=== PATIENT | male | born 1970 | race Hispanic/Latino ===

== ENCOUNTER 2020-04-16 09:59 | Emergency (ER) | payer OTHER, SELFPAY ==
[2020-04-17 11:56] LABS: SARS-CoV-2 MS2 Positive; SARS-CoV-2 N Gene Negative; SARS-CoV-2 S Gene Negative; SARS-CoV-2 orf1ab Negative
== END 2020-04-16 11:07 | disposition home or self-care (01) ==
LOC: ERS 09:59
DX: R05 Cough (principal); R63.0 Anorexia; R52 Pain, unspecified; R68.83 Chills (without fever); Z20.828 Contact with and (suspected) exposure to other viral communicable diseases; F41.9 Anxiety disorder, unspecified; F32.9 Major depressive disorder, single episode, unspecified; F43.10 Post-traumatic stress disorder, unspecified; F17.210 Nicotine dependence, cigarettes, uncomplicated
CPT/HCPCS: 87635; 99283; U0003

== ENCOUNTER 2020-12-12 12:44 | Emergency (ER) | payer OTHER, SELFPAY ==
[2020-12-12] MEDS ORDERED: Ketorolac Tromethamine 30 MG/ML VIAL ONE (13:13)
[2020-12-12] MEDS ORDERED: Ondansetron PF 4 MG/2 ML Vial ONE (13:13)
[2020-12-12 13:19] LABS: #Basophils 0.1 thou/uL (0.0-0.2); #Lymphocytes 1.3 thou/uL (1.20-3.40); #Monocytes 0.7 thou/uL (0.11-0.59); #Neutrophils 4.2 thou/uL (1.40-6.50); %Basophils 1.4 % (0.0-1.0); %Eosinophils 0.5 % (0.0-10.0); %Lymphocytes 20.9 % (21.0-51.0); %Monocytes 10.8 % (0.0-10.0); %Neutrophils 66.4 % (42.0-75.0); Hemoglobin 11.2 g/dL (14.0-18.0); Mean Corpuscular HGB CONC 32.4 g/dL (32.0-36.0); Mean Corpuscular Hemoglobin 26.1 pg (27.0-31.0); Mean Corpuscular Volume 80.8 fL (78.0-98.0); Mean Platelet Volume 7.8 fL (7.4-10.4); Platelet Count 296 thou/uL (130-400); RBC Distribution Width 18.8 % (11.5-14.5); White Blood Cell (WBC) Count 6.4 thou/uL (4.8-10.8)
[2020-12-12 13:38] LABS: ALT (SGPT) 49 U/L (8-55); AST (SGOT) 82 U/L (5-34); Albumin 4.5 g/dL (3.5-5.0); Alkaline Phosphatase 70 U/L (40-110); Anion Gap 20 mmol/L (10-20); BUN (Urea Nitrogen) 5 mg/dL (8.4-25.7); Bilirubin, Total 0.4 mg/dL (0.2-1.2); Calc. Creatinine Clearance 0 mL/min (70-130); Calcium 9.6 mg/dL (7.8-10.44); Carbon Dioxide 20 mmol/L (22-29); Chloride 96 mmol/L (98-107); Globulin 3.9 g/dL (2.4-3.5); Glucose 87 mg/dL (70-105); Protein, Total 8.4 g/dL (6.0-8.3); Sodium 132 mmol/L (136-145)
[2020-12-12 22:23] LABS: SARS-CoV-2 PCR by NAA Not Detected (NotDetected)
== END 2020-12-12 14:26 | disposition home or self-care (01) ==
LOC: ERS 12:44
DX: B34.9 Viral infection, unspecified (principal); E87.1 Hypo-osmolality and hyponatremia; I10 Essential (primary) hypertension; R11.2 Nausea with vomiting, unspecified; Z20.822 Contact with and (suspected) exposure to COVID-19; F17.210 Nicotine dependence, cigarettes, uncomplicated
CPT/HCPCS: 36415; 71045; 80053; 84484; 85025; 85652; 86140; 87635; 93005; 94760; 96374; 96375; J1885; J2405; U0003; U0005

== ENCOUNTER 2022-08-27 17:42 | Inpatient (IN) | payer OTHER, SELFPAY ==
[~2022-08-27 17:42] MED LIST: Iopamidol-370 76% 500 ML 1 ML ONE
[2022-08-27 18:24] LABS: #Basophils 0.1 thou/uL (0.0-0.2); #Eosinphils 0.2 thou/uL (0.0-0.7); #Lymphocytes 2.4 thou/uL (1.20-3.40); #Monocytes 0.5 thou/uL (0.11-0.59); #Neutrophils 8.1 thou/uL (1.40-6.50); %Basophils 0.6 % (0.0-1.0); %Eosinophils 1.5 % (0.0-10.0); %Lymphocytes 21.7 % (21.0-51.0); %Monocytes 4.4 % (0.0-10.0); %Neutrophils 71.8 % (42.0-75.0); Hemoglobin 12.5 g/dL (14.0-18.0); Mean Corpuscular HGB CONC 32.4 g/dL (32.0-36.0); Mean Corpuscular Hemoglobin 30.4 pg (27.0-31.0); Mean Corpuscular Volume 93.7 fl (78.0-98.0); Mean Platelet Volume 6.6 fL (7.4-10.4); Platelet Count 301 thou/uL (130-400); RBC Distribution Width 12.9 % (11.5-14.5); Red Blood Cell (RBC) Count 4.11 mill/uL (4.70-6.10); White Blood Cell (WBC) Count 11.3 thou/uL (4.8-10.8)
[2022-08-27 18:49] LABS: ALT (SGPT) 16 U/L (8-55); AST (SGOT) 25 U/L (5-34); Acetaminophen Less than 10.0 mcg/mL (10.0-30.0); Albumin 4.1 g/dL (3.5-5.0); Alcohol 171 mg/dL (Less than 10); Alcohol 173 mg/dL (Less than 10); Alkaline Phosphatase 71 U/L (40-110); Anion Gap 16 mmol/L (10-20); BUN (Urea Nitrogen) 8 mg/dL (8.4-25.7); Bilirubin, Total 0.3 mg/dL (0.2-1.2); Calc. Creatinine Clearance 0 mL/min (70-130); Calcium 8.8 mg/dL (7.8-10.44); Carbon Dioxide 17 mmol/L (22-29); Chloride 92 mmol/L (98-107); Estimated GFR 107; Globulin 2.8 g/dL (2.4-3.5); Glucose 107 mg/dL (70-105); Potassium 4.1 mmol/L (3.5-5.1); Protein, Total 6.9 g/dL (6.0-8.3); Salicylate Less than 8.0 mg/dL (15.0-30.0); Sodium 121 mmol/L (136-145)
[2022-08-27] MEDS ORDERED: CEFAZOLIN 1 GM VIAL ONE (19:11)
[2022-08-27 19:37] LABS: Bilirubin Negative (Negative); Blood, Urine Negative (Negative); Clarity Clear (Clear); Glucose, Urine (Dipstick) Normal (Negative); Ketone, Urine Negative (Negative); Leukocyte Negative Leu/uL (Negative); Nitrite Negative (Negative); Protein, Urine (Dipstick) Negative (Neg-Trace); Urobilinogen Normal mg/dL (Less than 2); pH, Urine 5.5 (5.0-9.0)
[2022-08-27 19:43] LABS: Amphetamine Not Detected (NotDetected); Barbiturates Screen Not Detected (NotDetected); Benzodiazepine Screen Not Detected (NotDetected); Cocaine Metabolite Screen Not Detected (NotDetected); Methadone Not Detected (NotDetected); Methamphetamine Not Detected (NotDetected); Opiate Screen Not Detected (NotDetected); Oxycodone Screen Not Detected (NotDetected); Phencyclidine (PCP) Not Detected (NotDetected); THC/Cannabinoid Screen Not Detected (NotDetected); Tricyclic Screen Not Detected (NotDetected)
[2022-08-27] MEDS ORDERED: Ondansetron PF 4 MG/2 ML Vial ONE (19:58)
[2022-08-27] MEDS ORDERED: Morphine 4 MG/ML VIAL ONE (19:58)
[2022-08-27] MEDS ORDERED: Lidocaine 2% PF 5 ML VIAL ONE (21:18)
[2022-08-27] MEDS ORDERED: FENTANYL 50 MCG/ML VIAL 50 MCG/ML VIAL ONE (21:54)
[2022-08-28 00:28] VITALS: BMI 25.6
[2022-08-28] MEDS ORDERED: Acetaminophen 650 MG Suppository PR PRN (01:07)
[2022-08-28 01:09] LABS: Anion Gap 16 mmol/L (10-20); BUN (Urea Nitrogen) 6 mg/dL (8.4-25.7); Calc. Creatinine Clearance 135 mL/min (70-130); Calcium 9.2 mg/dL (7.8-10.44); Carbon Dioxide 20 mmol/L (22-29); Chloride 95 mmol/L (98-107); Estimated GFR 107; Glucose 96 mg/dL (70-105); Potassium 4.6 mmol/L (3.5-5.1); Sodium 126 mmol/L (136-145)
[2022-08-28] MEDS ORDERED: Ondansetron ODT 4 MG TAB SL PRN (01:15)
[2022-08-28] MEDS ORDERED: Ondansetron PF 4 MG/2 ML Vial IVP PRN (01:15)
[2022-08-28 01:25] LABS: SARS-CoV-2 NAA Rapid Test Not Detected (NotDetected)
[2022-08-28] MEDS: Acetaminophen 325 MG TAB PO PRN ×2 (01:27→10:38)
[2022-08-28] MEDS ORDERED: Dextrose 5% in Water 1,000 ML IV SCH (01:30)
[2022-08-28] MEDS: Morphine 4 MG/ML VIAL SLOW IVP PRN ×5 (02:28→20:05)
[2022-08-28 05:35] LABS: #Eosinphils 0.1 thou/uL (0.0-0.7); #Monocytes 0.8 thou/uL (0.11-0.59); #Neutrophils 7.1 thou/uL (1.40-6.50); %Basophils 0.2 % (0.0-1.0); %Eosinophils 1.1 % (0.0-10.0); %Lymphocytes 20.2 % (21.0-51.0); %Monocytes 7.9 % (0.0-10.0); %Neutrophils 70.6 % (42.0-75.0); Hemoglobin 13.3 g/dL (14.0-18.0); Mean Corpuscular HGB CONC 32.3 g/dL (32.0-36.0); Mean Corpuscular Hemoglobin 30.4 pg (27.0-31.0); Mean Corpuscular Volume 93.9 fl (78.0-98.0); Platelet Count 288 thou/uL (130-400); RBC Distribution Width 12.8 % (11.5-14.5); Red Blood Cell (RBC) Count 4.39 mill/uL (4.70-6.10); White Blood Cell (WBC) Count 10.1 thou/uL (4.8-10.8)
[2022-08-28 06:47] LABS: Anion Gap 12 mmol/L (10-20); BUN (Urea Nitrogen) 6 mg/dL (8.4-25.7); Calc. Creatinine Clearance 130 mL/min (70-130); Calcium 9.2 mg/dL (7.8-10.44); Carbon Dioxide 24 mmol/L (22-29); Chloride 95 mmol/L (98-107); Estimated GFR 106; Glucose 106 mg/dL (70-105); Potassium 4.6 mmol/L (3.5-5.1); Sodium 126 mmol/L (136-145)
[2022-08-28] MEDS ORDERED: CEFAZOLIN 2 GM in Sodium Chloride 0.9% 100 ML IVPB SCH (07:45)
[2022-08-28 10:43] LABS: Anion Gap 14 mmol/L (10-20); BUN (Urea Nitrogen) 6 mg/dL (8.4-25.7); Calc. Creatinine Clearance 131 mL/min (70-130); Calcium 9.2 mg/dL (7.8-10.44); Carbon Dioxide 22 mmol/L (22-29); Chloride 95 mmol/L (98-107); Estimated GFR 106; Glucose 114 mg/dL (70-105); Potassium 5.2 mmol/L (3.5-5.1); Sodium 126 mmol/L (136-145)
[2022-08-28] MEDS ORDERED: Morphine 2 MG/ML VIAL SLOW IVP PRN (13:19)
[2022-08-28] MEDS: traMADol HCl 50 MG TAB PO PRN ×2 (15:42→22:12)
[2022-08-28] MEDS ORDERED: MIRTAZAPINE 45 MG PO SCH (21:00)
[2022-08-28] MEDS ORDERED: Prazosin HCl 1 MG CAP PO SCH (22:00)
[2022-08-28] MEDS ORDERED: Mirtazapine 30 MG TAB PO SCH (22:15)
[2022-08-29] MEDS: Morphine 4 MG/ML VIAL SLOW IVP PRN ×4 (00:10→15:39)
[2022-08-29 06:23] LABS: Anion Gap 13 mmol/L (10-20); BUN (Urea Nitrogen) 10 mg/dL (8.4-25.7); Calc. Creatinine Clearance 130 mL/min (70-130); Calcium 9.2 mg/dL (7.8-10.44); Carbon Dioxide 25 mmol/L (22-29); Chloride 97 mmol/L (98-107); Estimated GFR 106; Glucose 95 mg/dL (70-105); Potassium 4.5 mmol/L (3.5-5.1); Sodium 130 mmol/L (136-145)
[2022-08-29] MEDS: traMADol HCl 50 MG TAB PO PRN ×2 (06:47→11:23)
[2022-08-29] MEDS ORDERED: fentaNYL Citrate/PF 100 MCG/2 ML SYRINGE ONE (07:23)
[2022-08-29] MEDS ORDERED: PROPOFOL 200 MG/20 ML VIAL ONE (07:40)
[2022-08-29] MEDS ORDERED: Ondansetron PF 4 MG/2 ML Vial ONE (07:40)
[2022-08-29] MEDS ORDERED: Dexamethasone 20 MG/5 ML VIAL ONE (07:40)
[2022-08-29] MEDS ORDERED: CEFAZOLIN 2 GM VIAL ONE (07:53)
[2022-08-29] MEDS ORDERED: Bupivacaine PF 0.5% 30 ML VIAL ONE (08:36)
[2022-08-29] MEDS ORDERED: Promethazine HCl 25 MG/ML VIAL IVPB PRN (09:51)
[2022-08-29] MEDS ORDERED: Ondansetron HCl/PF 4 MG/2 ML Vial IVP PRN (09:51)
[2022-08-29] MEDS ORDERED: Promethazine HCl 25 MG/ML VIAL IM PRN (09:51)
[2022-08-29] MEDS ORDERED: Ketorolac Tromethamine 30 MG/ML VIAL IVP PRN (09:51)
[2022-08-29] MEDS ORDERED: Ketorolac Tromethamine 30 MG/ML VIAL ONE (09:52)
[2022-08-29] MEDS ORDERED: FENTANYL 50 MCG/ML VIAL 50 MCG/ML VIAL ONE ×2 (10:04→10:15)
[2022-08-29] MEDS ORDERED: Lithium Carbonate 150 MG CAP PO SCH ×2 (11:30→21:00)
[2022-08-29] MEDS: Folic Acid 1 MG TAB PO SCH (13:39)
[2022-08-29] MEDS: Prazosin HCl 1 MG CAP PO SCH ×2 (13:41→20:03)
[2022-08-29] MEDS: Bupropion 100 MG SR TAB PO SCH ×2 (13:41→20:04)
[2022-08-29] MEDS: CEFAZOLIN 2 GM in Sodium Chloride 0.9% 100 ML IVPB SCH (15:38)
[2022-08-29] MEDS ORDERED: Acetaminophen/Codeine 30-300mg Tablet PO PRN (16:49)
[2022-08-29] MEDS ORDERED: Ibuprofen 600 MG TAB PO PRN (16:50)
[2022-08-29] MEDS: Acetaminophen/Codeine 30-300mg Tablet PO PRN (19:59)
[2022-08-29] MEDS ORDERED: Mirtazapine 30 MG TAB PO SCH (21:00)
[2022-08-29] MEDS ORDERED: Lurasidone 20 MG TABLET PO SCH (21:00)
[2022-08-30] MEDS: CEFAZOLIN 2 GM in Sodium Chloride 0.9% 100 ML IVPB SCH ×2 (01:07→08:32)
[2022-08-30] MEDS: Acetaminophen/Codeine 30-300mg Tablet PO PRN ×3 (01:12→13:13)
[2022-08-30 06:31] LABS: Anion Gap 11 mmol/L (10-20); BUN (Urea Nitrogen) 14 mg/dL (8.4-25.7); Calc. Creatinine Clearance 130 mL/min (70-130); Calcium 9.1 mg/dL (7.8-10.44); Carbon Dioxide 24 mmol/L (22-29); Chloride 100 mmol/L (98-107); Estimated GFR 106; Glucose 96 mg/dL (70-105); Potassium 4.3 mmol/L (3.5-5.1); Sodium 131 mmol/L (136-145)
[2022-08-30] MEDS: Bupropion 100 MG SR TAB PO SCH (08:35)
[2022-08-30] MEDS: Folic Acid 1 MG TAB PO SCH (08:35)
[2022-08-30] MEDS: Morphine 4 MG/ML VIAL SLOW IVP PRN (08:55)
[2022-08-30] MEDS ORDERED: Lithium Carbonate 150 MG CAP PO SCH (09:00)
[2022-08-30 12:42] VITALS: BP 124/77; TEMP 98.4
[2022-08-30] MEDS: Prazosin HCl 1 MG CAP PO SCH (13:13)
[2022-08-30] MEDS: Valbenazine Tosylate [Ingrezza] 40 MG Capsule PO SCH (16:24)
[2022-08-31] MEDS ORDERED: FLU VACC QS2022-23(6MOS UP)/PF 60 MCG/0.5 ML SYRINGE IM ONE (09:00)
== END 2022-08-30 14:40 | disposition home or self-care (01) | DRG 504 ==
LOC: ERS 17:42 → SJJU 23:07 → OBSVTOIN 08-28 13:18
PROVIDERS: ADMIT Internal Medicine; ATTEND Internal Medicine
PROC: 0QSP04Z Reposition Left Metatarsal with Internal Fixation Device, Open Approach (ICD-10-PCS; principal; 2022-08-29)
PROC: 0J9K0ZZ Drainage of Left Hand Subcutaneous Tissue and Fascia, Open Approach (ICD-10-PCS; 2022-08-29)
DX: S62.331B Displaced fracture of neck of second metacarpal bone, left hand, initial encounter for open fracture (principal); E87.1 Hypo-osmolality and hyponatremia; E78.5 Hyperlipidemia, unspecified; Z20.822 Contact with and (suspected) exposure to COVID-19; F10.129 Alcohol abuse with intoxication, unspecified; S61.412A Laceration without foreign body of left hand, initial encounter; F20.9 Schizophrenia, unspecified; F41.9 Anxiety disorder, unspecified; F43.10 Post-traumatic stress disorder, unspecified; Z88.8 Allergy status to other drugs, medicaments and biological substances; V89.2XXA Person injured in unspecified motor-vehicle accident, traffic, initial encounter; Z98.84 Bariatric surgery status
CPT/HCPCS: 36415; 70450; 71260; 72125; 74177; 80048; 80053; 80306; 80307; 81003; 84443; 85025; 93005; 96376; 97139; C1713; G0378; J0690; J1100; J1885; J2001; J2270; J2405; J2704; J3010; J3490; J7070; Q9967; S0020; U0002

== ENCOUNTER 2022-12-13 12:10 | Emergency (ER) | payer SELFPAY ==
[2022-12-13 13:11] LABS: Bilirubin Negative (Negative); Blood, Urine Negative (Negative); Clarity Clear (Clear); Glucose, Urine (Dipstick) Normal (Negative); Ketone, Urine Negative (Negative); Leukocyte Negative Leu/uL (Negative); Nitrite Negative (Negative); Protein, Urine (Dipstick) Negative (Neg-Trace); Specific Gravity, Urine 1.003 (1.002-1.036); Urobilinogen Normal mg/dL (Less than 2)
[2022-12-13 14:19] LABS: #Basophils 0.1 thou/uL (0.0-0.2); #Lymphocytes 1.9 thou/uL (1.20-3.40); #Monocytes 0.4 thou/uL (0.11-0.59); #Neutrophils 2.4 thou/uL (1.40-6.50); %Basophils 2.1 % (0.0-1.0); %Lymphocytes 39.8 % (21.0-51.0); %Monocytes 8.2 % (0.0-10.0); %Neutrophils 48.9 % (42.0-75.0); Hemoglobin 12.5 g/dL (14.0-18.0); Mean Corpuscular HGB CONC 32.4 g/dL (32.0-36.0); Mean Corpuscular Volume 89.6 fl (78.0-98.0); Mean Platelet Volume 6.4 fL (7.4-10.4); Platelet Count 293 10x3/uL (130-400); RBC Distribution Width 15.4 % (11.5-14.5); Red Blood Cell (RBC) Count 4.29 mill/uL (4.70-6.10); White Blood Cell (WBC) Count 4.8 10x3/uL (4.8-10.8)
[2022-12-13] MEDS ORDERED: chlordiazePOXIDE HCl 25 MG CAP ONE (14:20)
[2022-12-13 14:40] LABS: ALT (SGPT) 152 U/L (8-55); AST (SGOT) 333 U/L (5-34); Acetaminophen Less than 10.0 mcg/mL (10.0-30.0); Albumin 4.3 g/dL (3.5-5.0); Alcohol 233 mg/dL (Less than 10); Alkaline Phosphatase 94 U/L (40-110); Anion Gap 18 mmol/L (10-20); BUN (Urea Nitrogen) 4 mg/dL (8.4-25.7); Bilirubin, Total 0.5 mg/dL (0.2-1.2); Calc. Creatinine Clearance 0 mL/min (70-130); Calcium 9.2 mg/dL (7.8-10.44); Carbon Dioxide 20 mmol/L (22-29); Chloride 94 mmol/L (98-107); Estimated GFR 110; Glucose 75 mg/dL (70-105); Potassium 4.1 mmol/L (3.5-5.1); Protein, Total 7.3 g/dL (6.0-8.3); Salicylate Less than 8.0 mg/dL (15.0-30.0); Sodium 128 mmol/L (136-145)
[2022-12-13 15:21] LABS: Amphetamine Not Detected (NotDetected); Barbiturates Screen Not Detected (NotDetected); Benzodiazepine Screen Not Detected (NotDetected); Cocaine Metabolite Screen Not Detected (NotDetected); Methadone Not Detected (NotDetected); Methamphetamine Not Detected (NotDetected); Opiate Screen Not Detected (NotDetected); Oxycodone Screen Not Detected (NotDetected); Phencyclidine (PCP) Not Detected (NotDetected); THC/Cannabinoid Screen Not Detected (NotDetected); Tricyclic Screen Not Detected (NotDetected)
[2022-12-13] MEDS ORDERED: Nicotine 21 MG PATCH TOP SCH (15:45)
[2022-12-13] MEDS ORDERED: hydrOXYzine 25 MG TAB ONE (20:08)
[2022-12-13] MEDS ORDERED: Folic Acid 1 MG TAB ONE (20:08)
[2022-12-13] MEDS ORDERED: hydrOXYzine Pamoate 25 mg Capsule ONE ×2 (20:12)
[2022-12-13] MEDS ORDERED: Prazosin HCl 1 MG CAP PO SCH (20:15)
[2022-12-13] MEDS ORDERED: Sertraline 100 MG TAB PO SCH (20:15)
[2022-12-13] MEDS ORDERED: Lurasidone 20 MG TABLET PO SCH (20:30)
[2022-12-13] MEDS ORDERED: Lithium Carbonate 150 MG CAP PO SCH (20:30)
[2022-12-13] MEDS ORDERED: buPROPion HCl 100 MG TAB PO SCH (20:30)
[2022-12-13] MEDS ORDERED: Lorazepam 1 MG TAB ONE (23:46)
[2022-12-14] MEDS ORDERED: Lorazepam 1 MG TAB ONE (06:04)
[2022-12-14] MEDS ORDERED: Nicotine 21 MG PATCH TOP SCH (09:00)
[2022-12-14] MEDS ORDERED: hydrOXYzine Pamoate 25 mg Capsule ONE (09:44)
[2022-12-14] MEDS ORDERED: Folic Acid 1 MG TAB ONE (09:45)
[2022-12-14] MEDS ORDERED: buPROPion HCl 100 MG TAB PO SCH (10:00)
[2022-12-14] MEDS ORDERED: Lithium Carbonate 150 MG CAP PO SCH (10:00)
[2022-12-14] MEDS ORDERED: chlordiazePOXIDE HCl 25 MG CAP ONE (14:56)
== END 2022-12-14 20:37 | disposition home or self-care (01) ==
LOC: ERS 12:10
DX: R45.851 Suicidal ideations (principal); F10.129 Alcohol abuse with intoxication, unspecified; F17.210 Nicotine dependence, cigarettes, uncomplicated; Y90.7 Blood alcohol level of 200-239 mg/100 ml
CPT/HCPCS: 36415; 80053; 80306; 80307; 81003; 85025; 93005; Q0177

== ENCOUNTER 2023-01-21 10:18 | Inpatient (IN) | payer SELFPAY ==
[2023-01-21 11:21] LABS: #Lymphocytes 1.6 thou/uL (1.20-3.40); #Monocytes 0.3 thou/uL (0.11-0.59); %Monocytes 7.6 % (0.0-10.0); %Neutrophils 50.4 % (42.0-75.0); Hemoglobin 12.9 g/dL (14.0-18.0); Mean Corpuscular HGB CONC 33.5 g/dL (32.0-36.0); Mean Corpuscular Hemoglobin 29.3 pg (27.0-31.0); Mean Corpuscular Volume 87.4 fl (78.0-98.0); Mean Platelet Volume 7.9 fL (7.4-10.4); Platelet Count 160 10x3/uL (130-400); RBC Distribution Width 17.7 % (11.5-14.5); White Blood Cell (WBC) Count 4.1 10x3/uL (4.8-10.8)
[2023-01-21 11:42] LABS: ALT (SGPT) 230 U/L (8-55); AST (SGOT) 527 U/L (5-34); Albumin 4.1 g/dL (3.5-5.0); Alkaline Phosphatase 174 U/L (40-110); Anion Gap 19 mmol/L (10-20); BUN (Urea Nitrogen) 5 mg/dL (8.4-25.7); Bilirubin, Total 0.6 mg/dL (0.2-1.2); Calc. Creatinine Clearance 0 mL/min (70-130); Calcium 9.1 mg/dL (7.8-10.44); Carbon Dioxide 21 mmol/L (22-29); Chloride 99 mmol/L (98-107); Estimated GFR 106; Globulin 2.9 g/dL (2.4-3.5); Glucose 78 mg/dL (70-105); Potassium 4.1 mmol/L (3.5-5.1); Sodium 135 mmol/L (136-145)
[2023-01-21] MEDS ORDERED: Iopamidol-370 76% 500 ML MDV (1 ML CHARGE) ONE (11:52)
[2023-01-21] MEDS ORDERED: Ondansetron PF 4 MG/2 ML Vial ONE (16:01)
[2023-01-21] MEDS ORDERED: PHENobarbital Sodium 65 MG/ML VIAL SLOW IVP PRN ×2 (16:10→18:42)
[2023-01-21 16:11] LABS: Bilirubin Negative (Negative); Blood, Urine Negative (Negative); Clarity Clear (Clear); Glucose, Urine (Dipstick) Normal (Negative); Ketone, Urine 10 mg/dL (Negative); Leukocyte Negative Leu/uL (Negative); Nitrite Negative (Negative); Protein, Urine (Dipstick) Negative (Neg-Trace); Specific Gravity, Urine 1.011 (1.002-1.036); pH, Urine 7.5 (5.0-9.0)
[2023-01-21] MEDS ORDERED: SODIUM CHLORIDE 0.9% IVPB SCH ×2 (16:15→17:45)
[2023-01-21] MEDS ORDERED: PHENOBARBITAL SODIUM IVPB SCH ×2 (16:15→17:45)
[2023-01-21] MEDS ORDERED: Thiamine HCl 100 MG, Folic Acid 1 MG in Dextrose 5 %-0.45 % NaCl 1,000 ML IVPB SCH (16:45)
[2023-01-21] MEDS ORDERED: Nicotine 21 MG PATCH TOP SCH (16:45)
[2023-01-21] MEDS ORDERED: Multivit, Therapeutic 1 TAB PO SCH (16:45)
[2023-01-21] MEDS ORDERED: Ondansetron ODT 4 MG TAB PO PRN (18:37)
[2023-01-21] MEDS ORDERED: Ondansetron PF 4 MG/2 ML Vial IVP PRN (18:37)
[2023-01-21] MEDS ORDERED: Pantoprazole 40 MG VIAL IVP SCH ×2 (18:40→18:45)
[2023-01-21] MEDS ORDERED: Lorazepam 2 MG/ML VIAL SLOW IVP PRN (18:42)
[2023-01-21] MEDS ORDERED: Morphine 2 MG/ML VIAL ONE (18:59)
[2023-01-21] MEDS ORDERED: Pantoprazole 40 MG VIAL ONE (18:59)
[2023-01-21 19:32] LABS: Troponin I Less than 0.010 ng/mL (< 0.028)
[2023-01-21] MEDS: Lactated Ringer's 1,000 ML IV SCH (20:28)
[2023-01-21 20:47] LABS: Acetaminophen Less than 10.0 mcg/mL (10.0-30.0); Alcohol Less than 10 mg/dL (Less than 10); Salicylate Less than 8.0 mg/dL (15.0-30.0)
[2023-01-21 21:25] VITALS: BMI 24.7
[2023-01-21 22:27] LABS: HBCM Index 0.07 S/CO (0-0.79); HBSAg Index 0.28 S/CO (0-0.99); HIV (1/2) Antibody/Antigen Non-Reactive (NonReactive); HIV 1/2 INDEX 0.17 S/CO (<1.00); Hep A IgM AB Non-Reactive (NonReactive); Hep A IgM S/CO 0.13 S/CO (0-0.79); Hep B Surf Ag Non-Reactive S/CO (NonReactive); Hep C IgG Ab Non-Reactive (NonReactive); Hepatitis B Core IgM Abs Non-Reactive (NonReactive)
[2023-01-21 22:32] LABS: Hep B Surf AB Reactive (NonReactive)
[2023-01-21] MEDS: Morphine 2 MG/ML VIAL SLOW IVP PRN (23:27)
[2023-01-22 00:15] LABS: Amphetamine Not Detected (NotDetected); Barbiturates Screen Detected (NotDetected); Benzodiazepine Screen Not Detected (NotDetected); Cocaine Metabolite Screen Not Detected (NotDetected); Methadone Not Detected (NotDetected); Methamphetamine Not Detected (NotDetected); Opiate Screen Detected (NotDetected); Oxycodone Screen Not Detected (NotDetected); Phencyclidine (PCP) Not Detected (NotDetected); THC/Cannabinoid Screen Not Detected (NotDetected); Tricyclic Screen Not Detected (NotDetected)
[2023-01-22] MEDS: Lactated Ringer's 1,000 ML IV SCH ×3 (00:40→12:42)
[2023-01-22] MEDS: Morphine 2 MG/ML VIAL SLOW IVP PRN ×4 (05:35→17:02)
[2023-01-22] MEDS: Famotidine/PF 20 mg/2ml Vial SLOW IVP SCH ×2 (08:51→20:46)
[2023-01-22] MEDS: Pantoprazole 40 MG VIAL IVP SCH ×2 (08:52→20:46)
[2023-01-22] MEDS: Folic Acid 1 MG TAB PO SCH (08:53)
[2023-01-22] MEDS: Thiamine 100 MG TAB PO SCH (08:53)
[2023-01-22 09:21] LABS: ALT (SGPT) 169 U/L (8-55); AST (SGOT) 279 U/L (5-34); Albumin 3.7 g/dL (3.5-5.0); Alkaline Phosphatase 156 U/L (40-110); Anion Gap 14 mmol/L (10-20); BUN (Urea Nitrogen) 5 mg/dL (8.4-25.7); Bilirubin, Total 0.8 mg/dL (0.2-1.2); Calc. Creatinine Clearance 142 mL/min (70-130); Calcium 8.7 mg/dL (7.8-10.44); Carbon Dioxide 26 mmol/L (22-29); Chloride 99 mmol/L (98-107); Estimated GFR 110; Globulin 2.8 g/dL (2.4-3.5); Glucose 75 mg/dL (70-105); Potassium 4.5 mmol/L (3.5-5.1); Protein, Total 6.5 g/dL (6.0-8.3); Sodium 134 mmol/L (136-145)
[2023-01-22 09:33] LABS: Band 10 % (5-11); Eosinophils 3 % (0-10); Hemoglobin 12.1 g/dL (14.0-18.0); Lymphocytes 33 % (21-51); MDiff Complete? YES; Mean Corpuscular HGB CONC 32.4 g/dL (32.0-36.0); Mean Corpuscular Hemoglobin 28.9 pg (27.0-31.0); Mean Corpuscular Volume 88.9 fl (78.0-98.0); Mean Platelet Volume 8.3 fL (7.4-10.4); Monocytes 9 % (0-10); Neutrophil 30 % (42-75); Platelet Count 132 10x3/uL (130-400); Platelet Morphology Comment Appears Adequate; Polychromasia SLIGHT = 2-3 cells (100X) (0-2/hpf); RBC Distribution Width 17.9 % (11.5-14.5); Reactive Lymphocytes 15 % (0-10); Red Blood Cell (RBC) Count 4.19 mill/uL (4.70-6.10); Target Cells MODERATE= 6-15 cells (100X) (0-1/hpf); White Blood Cell (WBC) Count 2.6 10x3/uL (4.8-10.8)
[2023-01-22] MEDS ORDERED: Lorazepam 2 MG/ML VIAL IM PRN (10:56)
[2023-01-22] MEDS ORDERED: Electrolyte Replacement Protocol 1 EACH FS SCH (11:00)
[2023-01-22 11:52] LABS: Syphilis Antibody Nonreactive (Nonreactive); Syphilis Antibody Index 0.09 S/CO (<1.00 Non-Reactive)
[2023-01-22] MEDS: Lorazepam 1 MG TAB PO SCH ×3 (12:40→23:22)
[2023-01-22] MEDS: Lorazepam 1 MG TAB PO PRN (15:22)
[2023-01-22] MEDS ORDERED: Nicotine 21 MG PATCH TD SCH (17:00)
[2023-01-23] MEDS: Lactated Ringer's 1,000 ML IV SCH ×2 (00:04→15:37)
[2023-01-23] MEDS: Morphine 2 MG/ML VIAL SLOW IVP PRN ×2 (02:57→13:00)
[2023-01-23] MEDS: Lorazepam 1 MG TAB PO PRN (02:57)
[2023-01-23 03:35] LABS: Hemoglobin 12.1 g/dL (14.0-18.0); Mean Corpuscular HGB CONC 33.8 g/dL (32.0-36.0); Mean Corpuscular Hemoglobin 29.8 pg (27.0-31.0); Mean Corpuscular Volume 88.1 fl (78.0-98.0); RBC Distribution Width 17.8 % (11.5-14.5); Red Blood Cell (RBC) Count 4.07 mill/uL (4.70-6.10); White Blood Cell (WBC) Count 3.2 10x3/uL (4.8-10.8)
[2023-01-23 03:58] LABS: ALT (SGPT) 171 U/L (8-55); AST (SGOT) 267 U/L (5-34); Albumin 3.2 g/dL (3.5-5.0); Alkaline Phosphatase 148 U/L (40-110); Anion Gap 15 mmol/L (10-20); BUN (Urea Nitrogen) 7 mg/dL (8.4-25.7); Bilirubin, Total 0.6 mg/dL (0.2-1.2); Calc. Creatinine Clearance 138 mL/min (70-130); Calcium 8.7 mg/dL (7.8-10.44); Carbon Dioxide 21 mmol/L (22-29); Chloride 100 mmol/L (98-107); Estimated GFR 109; Globulin 2.9 g/dL (2.4-3.5); Glucose 75 mg/dL (70-105); Protein, Total 6.1 g/dL (6.0-8.3); Sodium 132 mmol/L (136-145)
[2023-01-23 04:51] LABS: #Eosinphils 0.1 thou/uL (0.0-0.7); #Lymphocytes 1.3 thou/uL (1.20-3.40); #Monocytes 0.2 thou/uL (0.11-0.59); #Neutrophils 1.5 thou/uL (1.40-6.50); %Basophils 0.6 % (0.0-1.0); %Eosinophils 3.1 % (0.0-10.0); %Lymphocytes 42.4 % (21.0-51.0); %Monocytes 6.4 % (0.0-10.0); %Neutrophils 47.5 % (42.0-75.0); Mean Platelet Volume 9.7 fL (7.4-10.4); Platelet Count 111 10x3/uL (130-400); Platelet Morphology Comment Appears Decreased
[2023-01-23] MEDS: Lorazepam 1 MG TAB PO SCH ×2 (04:57→10:03)
[2023-01-23 08:10] LABS: INR-International Normal Ratio 0.9; Prothrombin Time 12.5 sec (12.0-14.7)
[2023-01-23] MEDS ORDERED: Multivitamins CHEW w/Iron Tablet PO SCH (09:00)
[2023-01-23] MEDS: Pantoprazole 40 MG VIAL IVP SCH (10:01)
[2023-01-23] MEDS: Famotidine/PF 20 mg/2ml Vial SLOW IVP SCH ×2 (10:01→10:19)
[2023-01-23] MEDS: Thiamine 100 MG TAB PO SCH (10:02)
[2023-01-23] MEDS: Folic Acid 1 MG TAB PO SCH (10:02)
[2023-01-23] MEDS ORDERED: Lorazepam 1 MG TAB PO PRN (10:56)
[2023-01-23 16:17] VITALS: TEMP 97.8
[2023-01-24] MEDS ORDERED: Lorazepam 1 MG TAB PO PRN (10:56)
[2023-01-24] MEDS ORDERED: Lorazepam 0.5 MG TAB PO SCH (11:00)
[2023-01-25] MEDS ORDERED: Lorazepam 0.5 MG TAB PO PRN (10:56)
== END 2023-01-23 18:27 | disposition home or self-care (01) | DRG 433 ==
LOC: ERS 10:18 → IMCU/EMU 18:46
PROVIDERS: ADMIT Family Medicine; ATTEND Internal Medicine
DX: K70.10 Alcoholic hepatitis without ascites (principal); E87.1 Hypo-osmolality and hyponatremia; F10.139 Alcohol abuse with withdrawal, unspecified; E87.20 Acidosis, unspecified; K29.20 Alcoholic gastritis without bleeding; F17.210 Nicotine dependence, cigarettes, uncomplicated; R74.01 Elevation of levels of liver transaminase levels; F31.9 Bipolar disorder, unspecified; F41.1 Generalized anxiety disorder; R07.9 Chest pain, unspecified; M06.9 Rheumatoid arthritis, unspecified; D72.819 Decreased white blood cell count, unspecified; K76.0 Fatty (change of) liver, not elsewhere classified; Z79.899 Other long term (current) drug therapy; Z88.8 Allergy status to other drugs, medicaments and biological substances; Z98.890 Other specified postprocedural states; Z98.84 Bariatric surgery status; Z98.1 Arthrodesis status; Z82.49 Family history of ischemic heart disease and other diseases of the circulatory system; Z20.822 Contact with and (suspected) exposure to COVID-19
CPT/HCPCS: 36415; 71045; 74177; 76705; 80053; 80306; 80307; 81003; 83690; 84425; 84484; 85025; 85610; 86705; 86706; 86709; 86780; 86803; 87340; 87350; 87389; 93005; 93306; 94760; 96365; 96366; 96375; C9113; J1650; J2060; J2272; J2405; J2560; J3411; J3490; J7042; J7120; Q0162; Q9967; S0028; U0003; U0005